=== PATIENT | female | born 1965 | race Caucasian/White ===

== ENCOUNTER 2022-04-21 12:50 | Emergency (ER) | payer BC ==
[2022-04-21 13:06] LABS: HEMOGLOBIN 13.4 gm/dl (12.3-15.3); RED BLOOD COUNT 4.48 M/UL (4.00-5.10); WHITE BLOOD COUNT 10.7 K/UL (4.5-11.0)
[2022-04-21 13:26] LABS: BUN/CREATININE RATIO 19 (0-10)
[2022-04-21] MEDS ORDERED: KLOR-CON M2020 MEQ PO (16:03)
== END 2022-04-21 16:00 | disposition home or self-care (01) ==
LOC: ER1 12:50
PROVIDERS: Emergency Medicine
DX: E87.6 Hypokalemia (principal); R55 Syncope and collapse; Z88.2 Allergy status to sulfonamides
CPT/HCPCS: 71045; 80053; 83690; 84484; 85025; 93005; 93270; 99285

== ENCOUNTER → 2022-06-04 | Outpatient (CLI) | payer BC ==
[~2022-06-04] MED LIST: KLOR-CON M2020 MEQ PO
[2022-06-04 08:30] LABS: HEMOGLOBIN 13.7 gm/dl (12.3-15.3); RED BLOOD COUNT 4.54 M/UL (4.00-5.10)
[2022-06-04 08:53] LABS: BUN/CREATININE RATIO 18 (0-10)
== END ==
LOC: CT 07:21
PROVIDERS: Orthopaedic Surgery
DX: M96.0 Pseudarthrosis after fusion or arthrodesis (principal); M20.11 Hallux valgus (acquired), right foot
CPT/HCPCS: 36415; 73700; 80053; 82652; 84134; 84443; 85025; 85652; 86141